=== PATIENT | female | born 1995 | race Caucasian/White ===

== ENCOUNTER → 2022-11-15 | Outpatient (CLI) | payer MEDICAID, SELFPAY ==
[2022-11-15 15:12] LABS: Absolute Lymphocyte Count 1.58 X10^3/uL (0.83-4.51); Absolute Neutrophil Count 5.7 X10^3/uL (2.0-7.7); Basophil# 0.01 X10^3/uL; Basophil% 0.1 % (0-1); Eosinophils% 1.3 % (0-5); Hemoglobin 11.7 g/dL (12.0-15.0); Lymphocyte # 1.58 X10^3/ul (0.83-4.51); Lymphocyte % 19.8 % (19-41); Mean Corp Hgb Conc 33.4 g/dL (32-36); Mean Corpuscular Hgb 27.7 pg (27.0-32.0); Mean Corpuscular Volume 82.7 fL (81-99); Monocyte# 0.53 X10^3/uL; Monocyte% 6.6 % (0-10); NRBC Flagged by Analyzer 0 % (0-5); Neutrophil # 5.73 X10^3/uL (2.7-7.7); Neutrophil % 71.9 % (47-70); Platelet Count 181 K/mm3 (150-450); RBC Distribution Width CV 16.2 % (11.6-14.6); RBC Distribution Width SD 49.3 fl (35.1-43.9); Red Blood Count 4.23 M/mm3 (4.2-5.4)
[2022-11-15 16:16] LABS: HIV - WCH Non-Reactive (Nonreactive); Hepatitis B Surface Antigen Non-Reactive (Nonreactive); Hepatitis C Antibody Non-Reactive (Nonreactive); Rubella IgG Non-Reactive (Nonreactive); Syphilis Antibodies Non-reactive
[2022-11-17 05:07] LABS: V-Zoster IgG (Immunity) 1625 index (Immune >165)
[2022-11-21 14:43] LABS: HPV Reflexed? NOT INDICATED
== END | disposition home or self-care (01) ==
LOC: WOBLAB 14:09
PROVIDERS: Visit Provider Student in an Organized Health Care Education/Training Program
DX: Z34.81 Encounter for supervision of other normal pregnancy, first trimester (principal); N91.1 Secondary amenorrhea
CPT/HCPCS: 36415; 85025; 86703; 86762; 86780; 86787; 86803; 87086; 87340; 88175; G0145

== ENCOUNTER → 2023-02-14 | Outpatient (CLI) | payer MEDICAID, SELFPAY ==
[2023-02-14 11:47] LABS: Hemoglobin 11.2 g/dL (12.0-15.0); Mean Corpuscular Hgb 28.7 pg (27.0-32.0); Mean Corpuscular Volume 89.7 fL (81-99); Mean Platelet Vol. 10.5 fl (6.2-12.0); Platelet Count 198 K/mm3 (150-450); RBC Distribution Width CV 13.7 % (11.6-14.6); RBC Distribution Width SD 44.5 fl (35.1-43.9); White Blood Count 8.7 K/mm3 (4.4-11.0)
[2023-02-14 11:52] LABS: Glucose Challenge Gest 1H 50g 79 mg/dL (70-140)
[2023-02-14 12:16] LABS: Syphilis Antibodies Non-reactive
== END | disposition home or self-care (01) ==
PROVIDERS: Visit Provider Student in an Organized Health Care Education/Training Program
DX: Z34.82 Encounter for supervision of other normal pregnancy, second trimester (principal)
CPT/HCPCS: 36415; 82950; 85027; 86780; 86850

== ENCOUNTER 2023-03-17 22:43 | Outpatient (CLI) | payer MEDICAID, SELFPAY ==
[2023-03-17 22:52] VITALS: BMI 33.9
[2023-03-17 23:21] VITALS: BP 112/65; PULSE 76; TEMP 37.1
[2023-03-17 23:31] LABS: Color, Urine Yellow (Yellow); Glucose, Dipstick Normal (Normal); Ketone-Dipstick Negative (Negative); Leukocyte Esterase-Dipstick Negative /ul (Negative); Nitrite-Dipstick Negative (Negative); Occult Blood-Urine Negative /ul (Negative); Protein-Dipstick Negative (Negative); Specific Gravity, Urine 1.015 (1.002-1.030); Urine Bilirubin Dipstick Negative (Negative); Urine Clarity Clear (Clear); Urine Urobilinogen Normal (Normal)
[2023-03-17 23:44] LABS: ROM Internal Control Test YES-OK TO RESULT pt. (Internal QC); ROM Patient Test Negative (Negative)
[2023-03-17 23:45] LABS: Record Kit Lot#, ROM+ K1374
--- NOTE | 2023-03-18 06:15 | OB.TRI.NOTE ---
HPI - General General Date of Service: 03/17/23 HPI Narrative MICHELLE GAMBINO, is a 27 F who presents with decreased movement and leakage of fluid PFSH PFSH Allergy/AdvReac Type Severity Reaction Status Date / Time No Known Allergies Allergy Verified 03/17/23 23:05 NST FHR Rate Baby A Baseline: 130 Variability:: Moderate Accelerations:: 10 x 10 Decelerations:: None NST Reactive:: Yes Uterine Activity:: Quiet Assessment & Plan (1) : PLAN: Called by nursing patient with leakage of fluid and decreased movement. ROM negative. NST reactive. Okay to discharge home with follow-up scheduled appointments
== END 2023-03-18 00:50 | disposition home or self-care (01) ==
LOC: WPOUT 22:50 → WP 22:50
PROVIDERS: Referring Provider Student in an Organized Health Care Education/Training Program; Visit Provider Student in an Organized Health Care Education/Training Program
DX: O36.8190 Decreased fetal movements, unspecified trimester, not applicable or unspecified (principal); O42.90 Premature rupture of membranes, unspecified as to length of time between rupture and onset of labor, unspecified weeks of gestation; Z3A.00 Weeks of gestation of pregnancy not specified
CPT/HCPCS: 59025; 59050; 81002; 84112; 99221; G0378

== ENCOUNTER 2023-05-23 01:57 | Observation (INO) | payer MEDICAID, SELFPAY ==
[2023-05-23 01:27] VITALS: TEMP 37.2; O2SAT 98
[2023-05-23 01:28] VITALS: BP 97/53; BP 98/55; PULSE 104; PULSE 108; O2SAT 86; O2SAT 96
[2023-05-23 01:33] VITALS: BMI 36.9
--- NOTE | 2023-05-23 02:31 | PN_ITS ---
Progress Note @ 39.3 who is a patient that presented today for contractions and ROM since 0505/22/23- upon arrival she was 5.5cm her medical imaging tech/yarn bleaching machine operator reports she checked her prior to coming when she was feeling pressure at 2049 and was 4cm. Pt has H/o of Previous CS at [place] - failed labor, prolonged Rupture. Pt is Poor TOLAC candidate and was told on multiple occasions would not be a TOLAC candidate in [place]. Pt has h/o of Polyhydramnios and LGA. Upon my notification that she was on unit I reviewed her tracing and contacted the patient to give her options as the plan of care has been VERY CLEAR to her. I told her via phone at approximately 0155 that she could stay in [place] and I would come in for repeat CS and I discussed the option to transfer her care to tertiary care center for her to TOLAC. Upon my Arrival on unit approximately 0220 patient in Room with Nursing staff as well as her Significant other and Sack Sewer Machine/Room Service Food Service Attendant. I again made it clear about the options and told her I was more then willing to transfer her to tertiary [facility] for TOLAC if she desires to continue to labor but she is a high risk, poor TOLAC candidate to continue in [place]. At this time patient requested 5 more minutes to discuss with her support persons- I along with nursing left the room to give them time to discuss options. After returning to the room the patient was very upset asked if there was another physician to assume her care- i explained there was not unless she went to another facility. She asked me to leave the room as she did not want me to be part of her care. She at this time told me she was declining a cs and declining a transfer and that she was leaving. I told her I wanted to make it clear that I do not want her to go home and not go to a tertiary care center for labor and delivery that my advice is that she goes to a tertiary care center. At this time the patient asked me to leave the room again. [facility] for transfer of care from [facility] at 36.5 weeks- however we never received any records that she was seen there. Pt at
--- NOTE | 2023-05-23 02:35 | NURSING ---
pt choosing to sign out ama, paperwork previously signed with Shantal PRINCE. Patient left at this time
--- NOTE | 2023-05-23 02:54 | OB.TRI.NOTE ---
HPI - General General Date of Admission: 05/23/23 HPI Narrative MICHELLE GAMBINO, is a 27 F @ 39.3 who is a patient that presented today for contractions and ROM since 51705/22/23- upon arrival she was 5.5cm her dive supervisor/upholstery mechanic reports she checked her prior to coming when she was feeling pressure at 2049 and was 4cm. Pt has H/o of Previous CS at [place] - failed labor, prolonged Rupture. Pt is Poor TOLAC candidate and was told on multiple occasions would not be a TOLAC candidate in [place]. Pt has h/o of Polyhydramnios and LGA. Upon my notification that she was on unit I reviewed her tracing and contacted the patient to give her options as the plan of care has been VERY CLEAR to her. I told her via phone at approximately 0155 that she could stay in [place] and I would come in for repeat CS and I discussed the option to transfer her care to tertiary care center for her to TOLAC. Upon my Arrival on unit approximately 0220 patient in Room with Nursing staff as well as her Significant other and Panman/Full Roll Inspector. I again made it clear about the options and told her I was more then willing to transfer her to tertiary care center for TOLAC if she desires to continue to labor but she is a high risk, poor TOLAC candidate to continue in [place]. At this time patient requested 5 more minutes to discuss with her support persons- I along with nursing left the room to give them time to discuss options. After returning to the room the patient was very upset asked if there was another physician to assume her care- i explained there was not unless she went to another facility. She asked me to leave the room as she did not want me to be part of her care. She at this time told me she was declining a cs and declining a transfer and that she was leaving. I told her I wanted to make it clear that I do not want her to go home and not go to a tertiary care center for labor and delivery that my advice is that she goes to a tertiary care center. At this time the patient asked me to leave the room again. At this time Nursing staff took over for AMA paperwork as that was her desire. [facility] for transfer of care from [employer] [facility] at 36.5 weeks- however we never received any records. [facility] records clearly indicate plan of care with patient- she was told on multiple occasions that plan was CS or if she went to labor she should go to [facility] or Nearest tertiary care center for TOLAC if she still desired- pt verbalized understanding clearly during these office visits. PFSH PFSH Home Medications vit no.95-ferrous fumarate 28 mg-folic acid 800 mcg tablet () 1 tab PO DAILY 05/23/23 [History Last Taken Unknown] Allergy/AdvReac Type Severity Reaction Status Date / Time No Known Allergies Allergy Verified 05/23/23 01:44 NST FHR Rate Baby A Baseline: 135 Variability:: Moderate Accelerations:: 15 x 15 Decelerations:: None NST Reactive:: Yes FHR Category:: Category I Uterine Activity:: Q4-5 min Assessment & Plan (1) Previous delivery affecting : (2) Limited care: (3) with care elsewhere: (4) Polyhydramnios affecting : (5) LGA (large for gestational age) fetus: PLAN: Plan @ 39.5 weeks gestation- SROM, in labor POOR TOLAC CANDIDATE- declining CS and Declining transfer to tertiary care center. Pt signed out AMA, does not desire care by me. 1) NST reactive- well being established 2) discussed with patient and made it clear I advise transfer to tertiary care center for care- After patient left I reached out to [facility]- Spoke to L&D Nurse Cano- they did receive a call from Full Roll Inspector Princess Davis that patient was coming for evaluation and TOLAC. I discussed the situation with her and will send my triage note to [facility] L&D.
== END 2023-05-23 02:35 | disposition left against medical advice (07) ==
LOC: WPOUT 01:57 → WP 03:14
PROVIDERS: Admitting Provider Advanced Practice Midwife; Referring Provider Advanced Practice Midwife; Visit Provider Advanced Practice Midwife
DX: O36.63X0 Maternal care for excessive fetal growth, third trimester, not applicable or unspecified (principal); Z3A.39 39 weeks gestation of pregnancy; Z53.29 Procedure and treatment not carried out because of patient's decision for other reasons; O34.219 Maternal care for unspecified type scar from previous cesarean delivery; O40.3XX0 Polyhydramnios, third trimester, not applicable or unspecified
CPT/HCPCS: 59025; 59050; 99221; G0378